=== PATIENT | female | born 1980 | race Caucasian/White ===

== ENCOUNTER 2018-06-23 20:40 | Emergency (ER) | payer BC, OTHER ==
[~2018-06-23] VITALS: Ht 170.2 cm; Wt 54.5 kg
[2018-06-23 20:47] VITALS: BP 142/64
[2018-06-23] MEDS ORDERED: CefTRIAXone 1000mg IM Kit (w/lidocaine diluent) IM ONE (22:35)
[2018-06-23 22:42] LABS: URINE HCG NEGATIVE (NEG)
[2018-06-23 22:50] LABS: CLARITY,URINE SLIGHTLY CLOUDY (Clear); GLUCOSE, URINE NEGATIVE (Neg); KETONES,URINE NEGATIVE (Neg); LEUKOCYTE ESTERASE ,URINE NEGATIVE (Neg); NITRITES, URINE NEGATIVE (Neg); OCCULT BLOOD,URINE TRACE-INTACT (Neg); PROTEIN,URINE NEGATIVE (Neg); UROBILINOGEN,URINE 0.2 E.U/dL (0.2-1.0)
[2018-06-23 22:52] LABS: COLOR,URINE YELLOW (Yellow); UA COLLECTION TYPE CLN CATCH MIDSTREAM
[2018-06-23 23:10] LABS: ALANINE AMINOTRANSFERASE 17 U/L (12-78); ALBUMIN 4.4 G/DL (3.4-5.0); ALBUMIN/GLOBULIN RATIO 1.2 (1.1-1.5); ALKALINE PHOSPHATASE 57 IU/L (46-116); ANION GAP 9 (8-16); ASPARTATE AMINO TRANSFERASE 12 U/L (10-37); BLOOD UREA NITROGEN 8 MG/DL (7-18); BUN/CREATININE RATIO 10.3 (6.6-38.0); CALCIUM 8.9 MG/DL (8.5-10.1); CHLORIDE 102 MMOL/L (99-107); CREATININE 0.78 MG/DL (0.40-0.90); GLUCOSE 109 MG/DL (70-104); POTASSIUM 3.4 MMOL/L (3.5-5.1); SODIUM 137 MMOL/L (135-145); TOTAL PROTEIN 8.1 G/DL (6.4-8.2); eGFR 83 ML/MIN
[2018-06-23 23:18] LABS: BACTERIA,URINE FEW /HPF (Neg); MUCUS STRANDS MODERATE /LPF (Neg); RBC,URINE 0-2 /HPF (0-2); SQUAMOUS EPITHELIAL CELL,UR MANY /LPF (FEW); WBC,URINE 0-4 /HPF (0-4)
[2018-06-23] MEDS ORDERED: CLIN150C8 PO (23:23)
[2018-06-23] MEDS ORDERED: ketorolac trometh inj. 60 MG/2 ML VIAL IM STA (23:33)
[2018-06-23 23:34] LABS: BASOPHILS % (AUTO) 0.1 % (0-1); EOSINOPHILS # (AUTO) 0.1 X10'3 (0-0.9); HEMATOCRIT 37.3 % (35.0-45.0); HEMOGLOBIN 12.6 g/dl (12.0-16.0); LYMPHOCYTES % (AUTO) 7.7 % (21-51); MEAN CORPUSCULAR HEMOGLOBIN 29.9 PG (27.0-31.0); MEAN CORPUSCULAR HGB CONC 33.9 % (33.0-36.5); MEAN CORPUSCULAR VOLUME 88.2 FL (78-98); MEAN PLATELET VOLUME 9.2 FL (7.4-10.4); MONOCYTES # (AUTO) 0.5 X10'3 (0-0.9); MONOCYTES % (AUTO) 3.9 % (2-12); NEUTROPHILS # (AUTO) 11.6 X10'3 (1.8-7.7); NEUTROPHILS % (AUTO) 87.3 % (42-75); PLATELET COUNT 280 X10'3 (140-440); RED BLOOD COUNT 4.23 X10'6 (4.20-5.60); RED CELL DISTRIBUTION WIDTH 15.1 % (11.5-14.5); WHITE BLOOD COUNT 13.3 X10'3 (4.5-11.0)
[2018-06-24] MEDS ORDERED: DICL50TA8 PO (00:03)
== END 2018-06-24 00:09 | disposition home or self-care (01) ==
LOC: ER 20:41
DX: J32.9 Chronic sinusitis, unspecified (principal); M54.9 Dorsalgia, unspecified; Z88.1 Allergy status to other antibiotic agents; Z88.8 Allergy status to other drugs, medicaments and biological substances; Z79.2 Long term (current) use of antibiotics; Z79.899 Other long term (current) drug therapy
CPT/HCPCS: 36415; 80053; 81001; 81025; 84443; 85025; 96372; 99284; J0696; J1885

== ENCOUNTER 2025-06-12 07:27 | Emergency (ER) | payer BC, OTHER ==
[~2025-06-12] VITALS: Ht 170.2 cm; Wt 61.3 kg
[~2025-06-12 07:27] MED LIST: CEPH-571 PO; CLIN-214 PO; DICL50TA8 PO; ONDA4TAB6 PO
[2025-06-12 07:32] VITALS: TEMP 98.7
--- NOTE | 2025-06-12 09:39 | Physician Documentation ---
History of Present Illness General Chief Complaint: See Chief Complaint Stated Complaint: HEADACHE DIZZINESS Time Seen by MD: 09:38 Primary Medical Doctor: sherita sharp Mode of Arrival: POV History of Present Illness Initial Comments The patient is a 44-year-old female presents to the emergency room with multiple complaints over the last 3-4 months. 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 Patient states she has difficulty with daily activities she is unable to work and has difficulty driving. Patient also complains of some blurry vision. The patient denies any focal neurologic weakness. Patient has been seen at outside institutions for the same complaint the patient has requested a Neurology consult through her primary. Patient denies any bowel or bladder dysfunction. The patient's symptoms are moderate and persistent. Medication Reconciliation Allergies: Coded Allergies: Bacitracin Zinc (Unverified Allergy, Unknown, 09/26/14) bacitracin (Unverified Allergy, Unknown, 09/26/14) gramicidin D (Unverified Allergy, Unknown, 09/26/14) levofloxacin (Unverified Allergy, Unknown, 09/26/14) neomycin sulfate (Unverified Allergy, Unknown, 09/26/14) polymyxin B (Unverified Allergy, Unknown, 09/26/14) polymyxin B sulfate (Unverified Allergy, Unknown, 09/26/14) Uncoded Allergies: TETANUS (Allergy, Unknown, 06/12/25) Scheduled Cephalexin (Keflex), 1 CAP PO Q6H Clindamycin HCl (Clindamycin HCl CAPSULE), 2 CAP PO TID Diclofenac Sodium (Diclofenac Sodium), 1 TABLET PO BID Ondansetron Hcl (Zofran), 1 TAB PO Q6H Past Medical History Past Medical History: No Pertinent History, Kidney Stones Past Surgical History: no surgical history Alcohol Use: None Drug Use: none Lives In: Home Occupation: employed Physical Exam Physical Exam Vital Signs: Temperature: 98.7, Source: Temporal, Heart Rate: 80, Respiratory Rate: 17, BP: 122/78, Pulse Oximetry: 100, Weight: 61.300 Oxygen Flow Rate: 0 Physical Exam VITALS: Reviewed and as above. GENERAL: Alert, no apparent distress. HEENT: Normocephalic, atraumatic, PERRL, EOMI, dry mucosa, no erythema RESPIRATORY: Lungs clear, normal breath sounds, no respiratory distress. CHEST: No accessory muscle use, no retractions CV: Regular rate, rhythm, no edema, no murmur, No: JVD GI: Soft, non-tender, bowels sounds present, no rebound, guarding, or rigidity BACK: No CVA tenderness, or swelling MUSCULOSKELETAL: No deformities, no edema SKIN: Warm and dry, no rash NEURO: Oriented x4, No motor or sensory deficit PSYCH: Normal mood and affect, no agitation Progress Results/Orders Results/Orders Vital Signs 06/12/25 06/12/25 06/12/25 06/12/25 07:32 08:27 08:30 10:10 Temp 98.7 Pulse 111 80 63 Resp 16 18 17 18 B/P (MAP) 159/108 122/78 (93) 114/62 Pulse Ox 99 100 100 O2 Flow Rate 0 0 Medical Decision Making Findings The patient presents with 3-4 months of neurologic symptoms of unclear etiology, given the limitations of the emergency department she has been advised that she should follow up with Neurology as well she will be given the name of a neurosurgeon who she can follow up with. The patient has a a normal neurologic exam she is hemodynamically stable cardiac cath lab technologist was interpreted as showing a sinus rhythm in his pulse oximetry was interpreted as normal and adequate. The patient states she received a migraine cocktail at [facility] without improvement. The patient will be advised to follow up with Neurology and Neurosurgery the patient will be discharged Departure Time of Disposition: 10:01 Disposition: 01 HOME / SELF CARE / HOMELESS Impression: Primary Impression: Headache Qualified Codes: R51.9 - Headache, unspecified Additional Impression: Dizziness Additional Instructions: Follow up with Neurology and Neurosurgery. Return for significant worsening of her symptoms. Departure Forms: Excuse form Work or School Excused From: Work Excuse beginning now through the following date: Jun 17, 2025 May Return but still avoid physical Activity from now until: Jun 18, 2025 Referrals: NO PRIMARY CARE PROVIDER (PCP) TEODORA MOTTA MD Signature Scribe Signature: no scribe Attestation: The note accurately reflects work and decisions made by me.Jason Kamara MD 06/14/25 19:22 JASON KAMARA MD Jun 12, 2025 09:39
[2025-06-12 10:10] VITALS: BP 114/62; PULSE 63; RESP 18; O2SAT 100
== END 2025-06-12 10:21 | disposition home or self-care (01) ==
LOC: ER 07:28
DX: R51.9 Headache, unspecified (principal); R42 Dizziness and giddiness; H53.8 Other visual disturbances; Z88.8 Allergy status to other drugs, medicaments and biological substances; Z88.1 Allergy status to other antibiotic agents; Z79.899 Other long term (current) drug therapy; Z87.442 Personal history of urinary calculi
CPT/HCPCS: 99282